=== PATIENT | female | born 1930 | race Hispanic/Latino ===

== ENCOUNTER 2018-08-16 09:46 | Emergency (ER) | payer OTHER ==
--- NOTE | 2018-08-16 10:27 | ER ---
Nurse's Notes [facility] Name: Sara Kowalski Age: 88 yrs Sex: Female : 1930 Arrival Date: 08/16/2018 Time: 09:49 Bed 7 Private MD: Miguel Wren V Diagnosis: Urinary tract infection, site not specified;Glaucoma Presentation: 08/16 10:09 Presenting complaint: Patient states: Burning w/ urination x 1 week, intermittent ph double vision and pain in R eye x 1 week, denies fever, abdominal pain, N/V/D, reports hx of glaucoma. Transition of care: patient was not received from another setting of care. Onset of symptoms was August 16, 2018. Risk Assessment: Do you want to hurt yourself or someone else? Patient reports no desire to harm self or others. Initial Sepsis Screen: Does the patient meet any 2 criteria? No. Patient's initial sepsis screen is negative. Does the patient have a suspected source of infection? Yes: Dysuria/Frequency/Urgency/UTI. Care prior to arrival: None. 10:09 Method Of Arrival: Ambulatory ph 10:09 Acuity: NIRALI 4 ph Historical: - Allergies: 10:17 PENICILLINS; ph - Home Meds: 10:17 eye drops for glaucoma [Active]; ph - PMHx: 10:17 Glaucoma; ph - Immunization history:: Pneumococcal vaccine is up to date, Flu vaccine is up to date. - Social history:: Smoking status: Patient/guardian denies using tobacco. - Family history:: not pertinent. - Ebola Screening: : No symptoms or risks identified at this time. - Hospitalizations: : No recent hospitalization is reported. Screenin:21 Abuse screen: Denies threats or abuse. Denies injuries from another. Nutritional ph screening: No deficits noted. Tuberculosis screening: No symptoms or risk factors identified. Fall Risk None identified. Assessment: 10:18 Reassessment: ERP at bedside, pt reports that she has not been using eye drops fro ph glaucoma as prescribed, states, " I stopped about a week ago because when I use it in the morning it really davies. I have been using it at night though.". General: Appears in no apparent distress. comfortable, slender, well groomed, Behavior is calm, cooperative, appropriate for age, Denies fever. Pain: Complains of pain in right eye. Neuro: Level of Consciousness is awake, alert, obeys commands, Oriented to person, place, time, situation. Cardiovascular: Capillary refill < 3 seconds in bilateral fingers Patient's skin is warm and dry. Respiratory: Airway is patent Respiratory effort is even, unlabored, Respiratory pattern is regular, symmetrical. GI: No signs and/or symptoms were reported involving the gastrointestinal system. Patient currently denies abdominal pain, diarrhea, nausea, vomiting. : Reports burning with urination, Denies pain in suprapubic area in lower back. EENT: Reports blurred vision in right eye pain in right eye reports that blurred vision and pain is intermittent. Derm: Skin is intact, is healthy with good turgor, Skin is pink, warm \\T\\ dry. Musculoskeletal: Circulation, motion, and sensation intact. Range of motion: intact in all extremities. 10:48 Reassessment: Patient appears in no apparent distress at this time. Patient and/or ph family updated on plan of care and expected duration. Pain level reassessed. Patient is alert, oriented x 3, equal unlabored respirations, skin warm/dry/pink. Pt prescribed meds for UTI and agrees that she will follow up w/ eye doctor tomorrow, d/c home w/ family. Vital Signs: 10:17 BP 178 / 78; Pulse 91; Resp 18; Temp 97.6(TE); Pulse Ox 99% on R/A; ph ED Course: 09:49 Patient arrived in ED. mr 09:49 Miguel Wren MD is Private Physician. mr 09:59 Pasquale Goldstein MD is Attending Physician. rn 10:09 Felipa Eisenberg RN is Primary Nurse. ph 10:10 Triage completed. ph 10:18 Arm band placed on. ph 10:21 Patient has correct armband on for positive identification. Bed in low position. Call ph light in reach. Side rails up X 1. Pulse ox on. NIBP on. Door closed. Noise minimized. Warm blanket given. 10:22 No provider procedures requiring assistance completed. Patient did not have IV access ph during this emergency room visit. 10:26 Miguel Wren MD is Referral Physician. rn Administered Medications: No medications were administered Outcome: 10:26 Discharge ordered by . rn 10:50 Discharged to home ambulatory, with family. ph 10:50 Condition: good 10:50 Discharge instructions given to patient, family, Instructed on discharge instructions, follow up and referral plans. medication usage, Demonstrated understanding of instructions, follow-up care, medications, Prescriptions given X 2. 10:50 Patient left the ED. ph Addendum: 08/22/2018 07:13 Addendum: Culture Results: Positive urine culture. No further action required. Bacteria i w sensitive to prescribed antibiotic. Signatures: Apple Gage Irene, SHERRI RN Pasquale Goldstein MD MD rn Hall, Patricia, RN RN
--- NOTE | 2018-08-16 10:28 | EDPHYS ---
Physician Documentation [facility] Name: Sara Kowalski Age: 88 yrs Sex: Female : 1930 Arrival Date: 08/16/2018 Time: 09:49 Bed 7 Private MD: Miguel Wren V ED Physician Pasquale Goldstein HPI: 08/16 10:12 This 88 yrs old Female presents to ER via Ambulatory with complaints of Vision rn Problem, Urinary Problem. 10:12 The patient presents with urinary symptoms, dysuria, frequency, urgency. Onset: The rn symptoms/episode began/occurred 1 week(s) ago. Modifying factors: The symptoms are alleviated by nothing, the symptoms are aggravated by urinating. Severity of symptoms: At their worst the symptoms were mild, in the emergency department the symptoms are unchanged. The patient has not experienced similar symptoms in the past. Reports dysuria and increased frequency, began 1 week ago, feels like has urine infection, no fever/vomiting. Also reports intermittent blurred vision, also began about 1 week ago, stopped taking her glaucoma drops because of burning sensation, no loss of vision. . Historical: - Allergies: 10:17 PENICILLINS; ph - Home Meds: 10:17 eye drops for glaucoma [Active]; ph - PMHx: 10:17 Glaucoma; ph - Immunization history:: Pneumococcal vaccine is up to date, Flu vaccine is up to date. - Social history:: Smoking status: Patient/guardian denies using tobacco. - Family history:: not pertinent. - Ebola Screening: : No symptoms or risks identified at this time. - Hospitalizations: : No recent hospitalization is reported. ROS: 10:12 Constitutional: Negative for fever, chills, and weight loss, Eyes: Negative for injury, rn pain, redness, and discharge, ENT: Negative for injury, pain, and discharge, Neck: Negative for injury, pain, and swelling, Cardiovascular: Negative for chest pain, palpitations, and edema, Respiratory: Negative for shortness of breath, cough, wheezing, and pleuritic chest pain, Abdomen/GI: Negative for abdominal pain, nausea, vomiting, diarrhea, and constipation, MS/Extremity: Negative for injury and deformity, Skin: Negative for injury, rash, and discoloration, Neuro: Negative for headache, weakness, numbness, tingling, and seizure. Exam: 10:12 Constitutional: This is a well developed, well nourished patient who is awake, alert, rn and in no acute distress. Head/Face: Normocephalic, atraumatic. Eyes: Pupils equal round and reactive to light, extra-ocular motions intact. Lids and lashes normal. Conjunctiva and sclera are non-icteric and not injected. Cornea within normal limits. Periorbital areas with no swelling, redness, or edema. ENT: MMM Abdomen/GI: soft, non-tender Skin: Warm, dry with normal turgor. Normal color with no rashes, no lesions, and no evidence of cellulitis. MS/ Extremity: Pulses equal, no cyanosis. Neurovascular intact. Full, normal range of motion. Equal circumference. Neuro: Awake and alert, GCS 15, oriented to person, place, time, and situation. Cranial nerves II-XII grossly intact. Motor strength 5/5 in all extremities. Sensory grossly intact. Cerebellar exam normal. Normal gait. Vital Signs: 10:17 BP 178 / 78; Pulse 91; Resp 18; Temp 97.6(TE); Pulse Ox 99% on R/A; ph MDM: 09:59 Patient medically screened. rn 10:26 Differential diagnosis: urinary tract infection. Data reviewed: vital signs, nurses rn notes, lab test result(s), urinalysis, and as a result, I will discharge patient. Counseling: I had a detailed discussion with the patient and/or guardian regarding: the historical points, exam findings, and any diagnostic results supporting the discharge/admit diagnosis, lab results, the need for outpatient follow up, to return to the emergency department if symptoms worsen or persist or if there are any questions or concerns that arise at home. Special discussion: I discussed with the patient/guardian in detail that at this point there is no indication for admission to the hospital. It is understood, however, that if the symptoms persist or worsen the patient needs to return immediately for re-evaluation. 08/16 10:09 Order name: Urine Microscopic Only rn 08/16 10:09 Order name: Urine Culture rn 08/16 10:09 Order name: Urine Dipstick-Ancillary (obtain specimen); Complete Time: 10:22 rn 08/16 10:19 Order name: Urine Dipstick--Ancillary (enter results) ms Administered Medications: No medications were administered Disposition: 08/16/18 10:26 Discharged to Home. Impression: Urinary tract infection, site not specified, Glaucoma. - Condition is Stable. - Discharge Instructions: Dysuria, Urinary Tract Infection, Adult. - Prescriptions for Pyridium 200 mg Oral Tablet - take 1 tablet by ORAL route every 8 hours for 3 days; 9 tablet. Macrobid 100 mg Oral Capsule - take 1 capsule by ORAL route every 12 hours for 10 days; 20 capsule. - Medication Reconciliation Form, Thank You Letter, Antibiotic Education, Prescription Opioid Use form. - Follow up: Miguel Wren MD; When: As needed; Reason: Recheck today's complaints, Re-evaluation by your physician. - Problem is new. - Symptoms have improved. Signatures: Dispatcher [employer] EDMS Pasquale Goldstein MD MD rn Felipa Eisenberg RN RN ph Corrections: (The following items were deleted from the chart) 10:50 10:26 08/16/2018 10:26 Discharged to Home. Impression: Urinary tract infection, site ph not specified; Glaucoma. Condition is Stable. Forms are Medication Reconciliation Form, Thank You Letter, Antibiotic Education, Prescription Opioid Use. Follow up: Miguel Wren; When: As needed; Reason: Recheck today's complaints, Re-evaluation by your physician. Problem is new. Symptoms have improved. rn
[2018-08-16 10:35] LABS: Urine Bacteria >50 /HPF (<20); Urine Culture Reflex Order NOT NEEDED; Urine Yeast FEW (NONE SEEN)
[2018-08-16 13:51] LABS: Urine Blood TRACE (NEG); Urine Glucose NEGATIVE (NEG); Urine Protein 1+ (NEG)
== END 2018-08-16 10:50 | disposition home or self-care (01) ==
LOC: ER 09:46
DX: N39.0 Urinary tract infection, site not specified (principal); H40.9 Unspecified glaucoma; Z88.0 Allergy status to penicillin
CPT/HCPCS: 81003; 81015; 87077; 87086; 87088; 87186; 99283